=== PATIENT | male | born 1990 | race Caucasian/White ===

== ENCOUNTER 2021-05-13 09:33 | Emergency (ER) | payer BC, OTHER ==
[~2021-05-13] VITALS: Ht 167.6 cm; Wt 99.8 kg
[2021-05-13 11:28] VITALS: BP 130/77
== END 2021-05-13 11:28 | disposition home or self-care (01) ==
LOC: ER 09:33
DX: R07.81 Pleurodynia (principal); F31.9 Bipolar disorder, unspecified; E78.00 Pure hypercholesterolemia, unspecified; E10.9 Type 1 diabetes mellitus without complications; Z91.018 Allergy to other foods

== ENCOUNTER 2021-06-18 23:33 | Emergency (ER) | payer BC, OTHER ==
[~2021-06-18] VITALS: Ht 170.2 cm; Wt 100.7 kg
[2021-06-18 23:46] VITALS: BP 140/73
[2021-06-19] MEDS ORDERED: NAPROSYN500 MG PO (00:49)
== END 2021-06-19 01:00 | disposition home or self-care (01) ==
LOC: ER 23:33
DX: M54.50 Low back pain, unspecified (principal); F31.9 Bipolar disorder, unspecified; E78.00 Pure hypercholesterolemia, unspecified; E11.9 Type 2 diabetes mellitus without complications; F17.200 Nicotine dependence, unspecified, uncomplicated; Z91.018 Allergy to other foods

== ENCOUNTER → 2021-09-09 | Emergency (ER) | payer BC, OTHER ==
[~2021-09-09] VITALS: Ht 170.2 cm; Wt 102.1 kg
[~2021-09-09] MED LIST: NAPROSYN500 MG PO
[2021-09-09 21:34] VITALS: BP 133/79
[2021-09-10 12:24] LABS: CALCIUM 9.6 mg/dL (8.5-10.1); DIRECT BILIRUBIN 0.1 mg/dL (<0.1-0.2); POTASSIUM 3.8 mmol/L (3.5-5.1); TOTAL BILIRUBIN 0.2 mg/dL (0.2-1.0); TOTAL PROTEIN 7.6 g/dL (6.4-8.2)
[2021-09-10 12:26] LABS: BASOPHILS 0.1 % (0.0-2.0); EOSINOPHILS 1.4 % (0.0-3.0); HEMATOCRIT 44.9 % (42.0-52.0); HEMOGLOBIN 15.3 gm/dL (14.0-18.0); MCH 30.6 pg (26.0-34.0); MCHC 34.1 g/dL (28.0-37.0); MCV 89.9 fL (80.0-100.0); MONOCYTES 5.2 % (1.0-8.0); PLATELET COUNT 278 thou/uL (150-400); POLYS 65.3 % (36.0-66.0); RBC 4.99 mil/uL (4.50-6.00); RDW 12.6 % (10.5-14.5); WBC 11.2 thou/uL (4.0-11.0)
== END ==
LOC: ER 21:31
PROVIDERS: Student in an Organized Health Care Education/Training Program
DX: K62.5 Hemorrhage of anus and rectum (principal); E11.9 Type 2 diabetes mellitus without complications; E78.00 Pure hypercholesterolemia, unspecified; F31.9 Bipolar disorder, unspecified; Z79.899 Other long term (current) drug therapy; Z91.018 Allergy to other foods